=== PATIENT | female | born 1975 | race Caucasian/White ===

== ENCOUNTER 2017-07-21 12:42 | Emergency (ER) | payer SELFPAY ==
[2017-07-21] MEDS ORDERED: KETOROLAC TROMETHAMINE INJ/PF 30 MG/1 ML SDV IV ONE (13:08)
[2017-07-21] MEDS ORDERED: HYDROMORPHONE HCL INJ/PF 2 MG/ML AMPULE IV ONE ×2 (13:15→14:26)
--- NOTE | 2017-07-21 13:17 | ER Document Report ---
ED General - General Chief Complaint: Abdominal Pain Stated Complaint: ABDOMINAL PAIN Time Seen by Provider: 07/21/17 13:07 Notes: 5-year-old female with a history of ovarian cysts and endometriosis previously hospitalized for several days with a ruptured cyst in [place] who is just moved to this area presents with 12 hours of gradual onset left lower quadrant pain radiating up her left side worse with certain movements. She vomited once this morning. No fever or chills. This feels similar to ruptured ovarian cyst she had in the past. She has been on Lupron for endometriosis before. She was brought in by ambulance. Her last period just ended. - Related Data Allergies/Adverse Reactions: amoxicillin [From Augmentin] Allergy (Verified 07/21/17 14:45) clavulanic acid [From Augmentin] Allergy (Verified 07/21/17 14:45) Penicillins Allergy (Verified 07/21/17 14:45) cyclobenzaprine [From Flexeril] Adverse Reaction (Verified 07/21/17 14:45) Past Medical History - Social History Smoking Status: Never Smoker Family History: None - Past Medical History Cardiac Medical History: Reports: Hx Atrial Fibrillation - no meds - controlled Past Surgical History: Reports: Hx Breast Surgery - tumor and cyst removal to right, Hx Gynecologic Surgery - ovarian cysts removed Review of Systems - Review of Systems Notes: REVIEW OF SYSTEMS GEN: Denies fever, chills, weight loss ENT: Denies sore throat, nasal discharge, ear pain EYES: Denies blurry vision, eye pain, discharge CV: Denies chest pain, palpitations, edema RESP: Denies cough, shortness of breath, wheezing GI: Abdominal pain vomiting, resolving. With small spotting MSK: Denies joint pain/swelling, edema, SKIN: Denies rash, skin lesions LYMPH: Denies swollen glands/lymph nodes NEURO: Denies headache, focal weakness or numbness, dizziness PSYCH: Denies depression, suicidal or homicidal ideation PHYSICAL EXAMINATION General: No acute distress, well-nourished Head: Atraumatic, normocephalic ENT: Mouth normal, oropharynx moist, no exudates or tonsillar enlargement Eyes: Conjunctiva normal, pupils equal, lids normal Neck: No JVD, supple, no guarding CVS: Normal rate, regular rhythm, no murmurs Resp: No resp distress, equal and normal breath sounds bilaterally GI: Nondistended, soft, mild left lower quadrant/pelvic tenderness Ext: No deformities, no edema, normal range of motion in upper and lower ext Back: No CVA or midline TTP Skin: No rash, warm Lymphatic: No lymphadeopathy noted Neuro: Awake, alert. Face symmetric. GCS 15. Physical Exam - Vital signs Vitals: Temp Pulse Resp BP Pulse Ox 98.4 F 98 16 130/88 H 99 07/21/17 13:15 07/21/17 13:15 07/21/17 13:15 07/21/17 13:15 07/21/17 13:15 Course - Re-evaluation Re-evalutation: 07/21/17 13:17 41-year-old female with history of endometriosis and ovarian cyst presents with left-sided abdominal pain, severe, with vomiting. Differential includes ruptured cyst ovarian torsion or endometriosis exacerbation. We will do ultrasound to rule out torsion, treat her pain, and get some labs. 07/21/17 15:33 Imaging shows ovarian cyst. Labs are normal except an elevated white count but the patient presented in distress so I think this could be from stress rather than infection especially given her lack of fever. There might of been another cyst which is ruptured. The patient, on repeat exams appears to feel much better and we discussed admission versus discharge. I think that would be a better choice to go home as does she. Will prescribe oral morphine and asked her to take ibuprofen as well. Refer her to [facility] but she only has an appointment for a couple weeks from now with her own [facility]. I have discussed with the patient there likely diagnosis, aftercare plan, follow -up plans and my usual and customary return precautions. They verbalized understanding of this. 07/21/17 15:33 - Vital Signs Vital signs: Temp Pulse Resp BP Pulse Ox 97.9 F 92 16 118/75 95 07/21/17 14:23 07/21/17 14:23 07/21/17 14:23 07/21/17 14:23 07/21/17 14:23 - Laboratory Result Diagrams: 07/21/17 12:55 07/21/17 12:55 Laboratory results interpreted by me: 07/21/17 07/21/17 12:55 12:55 WBC 18.2 H Absolute Neutrophils 13.4 H Creatinine 0.45 L - Diagnostic Test Radiology reviewed: Image reviewed Discharge - Discharge Clinical Impression: Ovarian cyst Qualifiers: Laterality: left Qualified Code(s): N83.202 - Unspecified ovarian cyst, left side Condition: Good Disposition: HOME, SELF-CARE Instructions: Abdominal Pain ([facility]) Additional Instructions: He will be discharged home for asymptomatic ovarian cyst, and possible ruptured ovarian cyst. Please take the pain medicine as we discussed, and return to the emergency department if your pain is not well controlled at home or if you get any worse in any way. Please also call the [facility] office with which you have an appointment and asked him to move it up. Prescriptions: Morphine Sulfate [Morphine Ir 30 mg Tablet] 30 mg PO Q4HP PRN #14 tablet PRN Reason: Referrals: BLAKE COULTER MD [ACTIVE STAFF] - Follow up in 1 week
[2017-07-21 13:24] LABS: ABSOLUTE BASOPHILS # (AUTO) 0.1 10^3/uL (0.0-0.2); ABSOLUTE EOSINOPHILS # (AUTO) 0.2 10^3/uL (0.0-0.6); ABSOLUTE LYMPHOCYTES (AUTO) 3.6 10^3/uL (0.5-4.7); ABSOLUTE MONOCYTES (AUTO) 0.8 10^3/uL (0.1-1.4); ABSOLUTE NEUT (AUTO) 13.4 10^3/uL (1.7-8.2); BASOPHILS % (AUTO) 0.8 % (0-2); EOSINOPHILS % (AUTO) 0.9 % (0-6); HEMOGLOBIN 14.1 g/dL (12.0-15.5); HGB HCT DIFFERENCE 0.3; LYMPHOCYTES % (AUTO) 19.9 % (13-45); MEAN CORPUSCULAR HEMOGLOBIN 28.8 pg (27.0-33.4); MEAN CORPUSCULAR HGB CONC 33.5 g/dL (32.0-36.0); MEAN CORPUSCULAR VOLUME 86 fl (80-97); MONOCYTES % (AUTO) 4.4 % (3-13); RED BLOOD COUNT 4.88 10^6/uL (3.72-5.28); RED CELL DISTRIBUTION WIDTH 13.3 % (11.5-14.0); WHITE BLOOD COUNT 18.2 10^3/uL (4.0-10.5)
[2017-07-21 13:30] LABS: ANION GAP 10 (5-19); BLOOD UREA NITROGEN 19 mg/dL (7-20); CALCIUM 10.1 mg/dL (8.4-10.2); CARBON DIOXIDE 23 mmol/L (22-30); CHLORIDE 105 mmol/L (98-107); CREATININE RESULT 0.45 mg/dL (0.52-1.25); GLUCOSE 91 mg/dL (75-110); POTASSIUM 4.1 mmol/L (3.6-5.0); SODIUM 138.3 mmol/L (137-145)
[2017-07-21 13:54] LABS: APPEARANCE,URINE CLEAR; BILIRUBIN,URINE NEGATIVE (NEGATIVE); GLUCOSE, URINE NEGATIVE (NEGATIVE); KETONES,URINE NEGATIVE (NEGATIVE); LEUKOCYTE ESTERASE,URINE NEGATIVE (NEGATIVE); NITRITE,URINE NEGATIVE (NEGATIVE); PROTEIN,URINE NEGATIVE (NEGATIVE); UROBILINOGEN,URINE NEGATIVE mg/dL (<2.0)
--- NOTE | 2017-07-21 14:38 | RADIOLOGY REPORT (SQ) ---
EXAM DESCRIPTION: U/S NON OB PEL TV W/DOPPLER COMPLETED DATE/TIME: 07/21/2017 2:15 pm REASON FOR STUDY: lower ab dpn, h/o cuysts, r/o torsion COMPARISON: None. TECHNIQUE: Dynamic and static grayscale images acquired of the pelvis via transvaginal approach and recorded on PACS. Additional selected color Doppler and spectral images recorded. LIMITATIONS: None. FINDINGS: UTERUS: Contour normal. No mass. Uterus measures 8.6 x 6 x 4.2 cm in size. ENDOMETRIAL STRIPE: No focal or generalized thickening. No masses. 8 to 9 mm in thickness CERVIX: There is mucous in the endocervical canal. In the endocervical canal near the lower uterine segment, a 7 x 3 mm endocervical polyp is present. In the upper cervix, a 6 mm nabothian cyst is pre sent. RIGHT OVARY: Not visualized due to adnexal gas RIGHT OVARY DOPPLER: Not performed LEFT OVARY: Left ovary measures 3 x 3 x 2.1 cm in size with a 16 mm hemorrhagic cyst LEFT OVARY DOPPLER: Normal arterial vascular flow without evidence for torsion. FREE FLUID: None noted. OTHER: No other significant finding. IMPRESSION: 7 x 3 mm endocervical polyp 16 mm hemorrhagic cyst left ovary Right ovary not identified due to adnexal bowel gas TECHNICAL DOCUMENTATION: JOB ID: [id number] [employer]- All Rights Reserved
[2017-07-21 16:36] VITALS: BP 111/73
== END 2017-07-21 16:12 | disposition home or self-care (01) ==
LOC: ER 12:42
DX: N83.202 Unspecified ovarian cyst, left side (principal); R10.32 Left lower quadrant pain; D72.829 Elevated white blood cell count, unspecified; Z88.0 Allergy status to penicillin; Z98.890 Other specified postprocedural states
CPT/HCPCS: 96376; 99284; 96374; 96375; 36415; 84702; 85025; 80048; 81001; 76830; 93976; J1885; J1170

== ENCOUNTER 2019-02-18 23:31 | Emergency (ER) | payer SELFPAY ==
--- NOTE | 2019-02-18 23:35 | ER Document Report ---
ED Medical Screen (RME) - General Stated Complaint: POSSIBLE ABSCESS Time Seen by Provider: 02/18/19 23:33 Mode of Arrival: Ambulatory Information source: Patient Notes: Patient is a 43-year-old female who presents to the emergency department via EMS for tailbone pain x5 days. EMS reports that it appears to be an abscess. Patient denies history of same. Patient denies any fevers or drainage from the area. - Related Data Allergies/Adverse Reactions: amoxicillin [From Augmentin] Allergy (Verified 07/21/17 14:45) clavulanic acid [From Augmentin] Allergy (Verified 07/21/17 14:45) Penicillins Allergy (Verified 07/21/17 14:45) cyclobenzaprine [From Flexeril] Adverse Reaction (Verified 07/21/17 14:45) Past Medical History - Past Medical History Cardiac Medical History: Reports: Hx Atrial Fibrillation - no meds - controlled Past Surgical History: Reports: Hx Breast Surgery - tumor and cyst removal to right, Hx Gynecologic Surgery - ovarian cysts removed
[2019-02-18] MEDS ORDERED: HYDROCODONE/ACETAMINOPHEN 5-325 MG TABLET PO ONE (23:44)
[2019-02-18 23:47] VITALS: BP 119/83
[2019-02-19] MEDS ORDERED: LIDOCAINE 1% INJ-PF (10 MG/ML) 30 ML SDV INJ ONE (02:56)
[2019-02-19] MEDS ORDERED: ONDANSETRON 4 MG TAB.RAPDIS PO ONE (02:56)
[2019-02-19] MEDS ORDERED: HYDROMORPHONE HCL INJ/PF 2 MG/ML AMPULE IM ONE (02:56)
--- NOTE | 2019-02-19 02:58 | ER Document Report ---
ED Skin Rash/Insect Bite/Abscs - General Chief Complaint: Abscess Stated Complaint: POSSIBLE ABSCESS Time Seen by Provider: 02/18/19 23:33 Mode of Arrival: Ambulatory Notes: Patient is a 43-year-old female that comes to the emergency department for chief complaint of pain to her tailbone area that has been worsening for the past 5 days. Pain spread to the right side slightly as well. Denies drainage. Denies painful bowel movements, fever/chills, or history of the same. Denies any daily medications. - Related Data Allergies/Adverse Reactions: amoxicillin [From Augmentin] Allergy (Verified 07/21/17 14:45) clavulanic acid [From Augmentin] Allergy (Verified 07/21/17 14:45) Penicillins Allergy (Verified 07/21/17 14:45) cyclobenzaprine [From Flexeril] Adverse Reaction (Verified 07/21/17 14:45) Past Medical History - General Information source: Patient - Social History Smoking Status: Never Smoker Frequency of alcohol use: None Drug Abuse: None Lives with: Family Family History: None - Past Medical History Cardiac Medical History: Reports: Hx Atrial Fibrillation - no meds -paroxysmal Past Surgical History: Reports: Hx Breast Surgery - tumor and cyst removal to right, Hx Gynecologic Surgery - ovarian cysts removed - Immunizations Hx Diphtheria, Pertussis, Tetanus Vaccination: Yes Review of Systems - Review of Systems Constitutional: No symptoms reported EENT: No symptoms reported Cardiovascular: No symptoms reported Respiratory: No symptoms reported Gastrointestinal: No symptoms reported Genitourinary: No symptoms reported Female Genitourinary: No symptoms reported Musculoskeletal: No symptoms reported Skin: See HPI Hematologic/Lymphatic: No symptoms reported Neurological/Psychological: No symptoms reported Physical Exam - Vital signs Vitals: Temp Pulse Resp BP Pulse Ox 98.4 F 110 H 20 119/83 98 02/18/19 23:44 02/18/19 23:44 02/18/19 23:44 02/18/19 23:44 02/18/19 23:44 - Notes Notes: GENERAL: Alert, interacts well. No acute distress. HEAD: Normocephalic, atraumatic. EYES: Pupils equal, round, and reactive to light. Extraocular movements intact. ENT: Oral mucosa moist, tongue midline. Oropharynx unremarkable. Airway patent. Nares patent, no nasal septal hematoma, TM's intact. NECK: Full range of motion. Supple. Trachea midline. LUNGS: Clear to auscultation bilaterally, no wheezes, rales, or rhonchi. No respiratory distress. HEART: Regular rate and rhythm. No murmur ABDOMEN: Soft, non-tender. Non-distended. Bowel sounds present in all 4 quadrants. GENITOURINARY: Deferred EXTREMITIES: Moves all 4 extremities spontaneously. No edema, normal radial and dorsalis pedis pulses bilaterally. No cyanosis. BACK: no cervical, thoracic, lumbar midline tenderness. No saddle anesthesia, normal distal neurovascular exam. NEUROLOGICAL: Alert and oriented x3. Normal speech. [cranial nerves II through XII grossly intact]. PSYCH: Normal affect, normal mood. SKIN: Indurated, fluctuant area at the pilonidal cyst area on the left at the top of the buttocks, this extends around to the right somewhat as well. There is no evidence of perianal abscess, there is no concerning finding otherwise. Course - Re-evaluation Re-evalutation: Patient has a large pilonidal cyst with abscess. This was drained, packed, patient placed on Bactrim. Discussed packing removal, wound care, follow-up instructions, and return precautions in detail. Patient was not tachycardic on my exam. She is not febrile, she is not diabetic. Patient states appreciation and agreement with plan. - Vital Signs Vital signs: Temp Pulse Resp BP Pulse Ox 98.4 F 110 H 20 119/83 98 02/18/19 23:44 02/18/19 23:44 02/18/19 23:44 02/18/19 23:44 02/18/19 23:44 Procedures - Incision and Drainage Pilonidal cyst abscess Type: Single Anesthetic type: 1% Lidocaine mL's of anesthetic: 8 Blade size: 11 I&D procedure: Shurclens applied, Iodoform packing placed, Sterile dressing applied Incision Method: Incision made by scalpel Amount/type of drainage: Large amount of purulent drainage, about 15 cc Discharge - Discharge Clinical Impression: Pilonidal cyst with abscess Condition: Stable Disposition: HOME, SELF-CARE Additional Instructions: The pilonidal cyst abscess has been drained. Packing needs to be removed in 2 days. Follow-up close with primary care for additional management. Take the Bactrim antibiotic as prescribed, keep area clean, clean with soap and water, avoid soaking. Return if you worsen including evolving fever, severe worsening pain, spreading redness, or any other concerning or worsening symptoms. Prescriptions: Morphine Sulfate [Morphine Ir 15 Mg Tablet] 15 mg PO TID #10 tablet Sulfamethoxazole/Trimethoprim [Bactrim Ds Tablet] 1 each PO BID #14 tablet
[2019-02-19] MEDS ORDERED: HYDROCODONE/ACETAMINOPHEN 5-325 MG (6 TAB/ER DISP) PO PRN (04:23)
== END 2019-02-19 04:35 | disposition home or self-care (01) ==
LOC: ER 23:31
DX: L05.01 Pilonidal cyst with abscess (principal); Z88.0 Allergy status to penicillin
CPT/HCPCS: 99283; 96372; 10080; S0119; J3490; J1170

== ENCOUNTER 2019-02-21 23:30 | Emergency (ER) | payer SELFPAY ==
[2019-02-21] MEDS ORDERED: HYDROCODONE/ACETAMINOPHEN 10-325 MG TABLET PO ONE (23:49)
--- NOTE | 2019-02-21 23:51 | ER Document Report ---
ED Medical Screen (RME) - General Chief Complaint: Abscess Stated Complaint: PAIN Time Seen by Provider: 02/21/19 23:48 Notes: pilonidal drained Thursday, here d/t increase pain and "needs packing replaced." subj fevers at home I have greeted and performed a rapid initial assessment of this patient. A comprehensive ED assessment and evaluation of the patient, analysis of test results and completion of the medical decision making process will be conducted by additional ED providers. TRAVEL OUTSIDE OF THE [place] IN LAST 30 DAYS: No - Related Data Allergies/Adverse Reactions: amoxicillin [From Augmentin] Allergy (Verified 07/21/17 14:45) clavulanic acid [From Augmentin] Allergy (Verified 07/21/17 14:45) Penicillins Allergy (Verified 07/21/17 14:45) cyclobenzaprine [From Flexeril] Adverse Reaction (Verified 07/21/17 14:45) Past Medical History - Past Medical History Cardiac Medical History: Reports: Hx Atrial Fibrillation - no meds -paroxysmal Renal/ Medical History: Denies: Hx Peritoneal Dialysis Past Surgical History: Reports: Hx Breast Surgery - tumor and cyst removal to right, Hx Gynecologic Surgery - ovarian cysts removed - Immunizations Hx Diphtheria, Pertussis, Tetanus Vaccination: Yes
[2019-02-22] MEDS ORDERED: HYDROCODONE/ACETAMINOPHEN 5-325 MG TABLET ONE (06:54)
[2019-02-22] MEDS ORDERED: OXYCODONE-ACETAMINOPHEN 5-325 MG TABLET PO ONE (08:27)
--- NOTE | 2019-02-22 08:30 | ER Document Report ---
ED Skin Rash/Insect Bite/Abscs - General Chief Complaint: Abscess Stated Complaint: PAIN Time Seen by Provider: 02/21/19 23:48 Mode of Arrival: Medic Information source: Patient Notes: Patient is a 43-year-old female who had a pilonidal cyst incised and drained 3 days ago, here for packing removal. Patient reports increased pain, states that she cannot take the morphine orally that she was sent home with because of nausea. TRAVEL OUTSIDE OF THE [place] IN LAST 30 DAYS: No - Related Data Allergies/Adverse Reactions: amoxicillin [From Augmentin] Allergy (Verified 07/21/17 14:45) clavulanic acid [From Augmentin] Allergy (Verified 07/21/17 14:45) Penicillins Allergy (Verified 07/21/17 14:45) cyclobenzaprine [From Flexeril] Adverse Reaction (Verified 07/21/17 14:45) Past Medical History - General Information source: Patient - Social History Smoking Status: Current Every Day Smoker Family History: None Patient has suicidal ideation: No Patient has homicidal ideation: No - Past Medical History Cardiac Medical History: Reports: Hx Atrial Fibrillation - no meds -paroxysmal Renal/ Medical History: Denies: Hx Peritoneal Dialysis Past Surgical History: Reports: Hx Breast Surgery - tumor and cyst removal to right, Hx Gynecologic Surgery - ovarian cysts removed, Hx Oral Surgery - Immunizations Hx Diphtheria, Pertussis, Tetanus Vaccination: Yes Review of Systems - Review of Systems Constitutional: No symptoms reported EENT: No symptoms reported Cardiovascular: No symptoms reported Respiratory: No symptoms reported Gastrointestinal: No symptoms reported Genitourinary: No symptoms reported Female Genitourinary: No symptoms reported Musculoskeletal: No symptoms reported Skin: See HPI Hematologic/Lymphatic: No symptoms reported Neurological/Psychological: No symptoms reported Physical Exam - Vital signs Vitals: Temp Pulse Resp BP Pulse Ox 98.8 F 116 H 22 H 129/80 H 97 02/21/19 23:49 02/21/19 23:49 02/21/19 23:49 02/21/19 23:49 02/21/19 23:49 - Notes Notes: PHYSICAL EXAMINATION: GENERAL: Uncomfortable-appearing and in no acute distress. HEAD: Atraumatic, normocephalic. EYES: Pupils equal round and reactive to light, extraocular movements intact, sclera anicteric, conjunctiva are normal. NECK: Normal range of motion, supple without lymphadenopathy LUNGS: CTAB and equal. No wheezes rales or rhonchi. HEART: Regular rate and rhythm without murmurs BACK: no vertebral tenderness, normal ROM GI/: no CVA tenderness EXTREMITIES: Normal range of motion, no pitting edema. No cyanosis. NEUROLOGICAL: Cranial nerves grossly intact. Normal sensory/motor exams. PSYCH: Normal mood, normal affect. SKIN: Warm, Dry, normal turgor, incision to left upper buttock with packing in place, no erythema surrounding Course - Re-evaluation Re-evalutation: 02/22/19 08:29 Packing was taken out successfully patient tolerated well - Vital Signs Vital signs: Temp Pulse Resp BP Pulse Ox 98.8 F 116 H 22 H 129/80 H 97 02/21/19 23:49 02/21/19 23:49 02/21/19 23:49 02/21/19 23:49 02/21/19 23:49 Discharge - Discharge Clinical Impression: Pilonidal cyst with abscess Condition: Stable Disposition: HOME, SELF-CARE Instructions: Post Incision and Drainage, Trimethoprim-Sulfa ([facility]) Additional Instructions: Return immediately for any new or worsening symptoms. Follow up with primary care provider, call tomorrow to make followup appointment. Prescriptions: Hydrocodone/Acetaminophen [[place] 5-325 mg Tablet] 1 tab PO Q4 PRN #6 tablet PRN Reason:
[2019-02-22 08:51] VITALS: BP 121/82
== END 2019-02-22 08:47 | disposition home or self-care (01) ==
LOC: ER 23:30
DX: L05.01 Pilonidal cyst with abscess (principal); F17.200 Nicotine dependence, unspecified, uncomplicated; R11.0 Nausea; I48.91 Unspecified atrial fibrillation; Z88.0 Allergy status to penicillin
CPT/HCPCS: 99282